=== PATIENT | female | born 1950 | race Caucasian/White ===

== ENCOUNTER 2019-11-18 11:08 | Outpatient (RCR) | payer MEDICARE, SELFPAY ==
--- NOTE | 2019-11-26 08:10 | PTOPEVAL ---
Thank you for referring this patient to [facility]. Please review, sign, date and return this plan of care LIZETH. I agree with and certify that the following plan of care is medically necessary. Referring Physician Date Admitting Provider: Attending Provider: ELAYNE FLORES Referring Provider: *PT Outpatient Evaluation Start: 11/25/19 22:33 Freq: Status: Active Protocol: Document 11/18/19 11:00 [place] (Rec: 11/25/19 22:47 [facility] [id number]) Therapy Assessment Status Assessment Status Assessment Status Evaluation Outpatient Past Medical History Past Medical History Reason Unable to Obtain Refer to [facility] form for pt. Hx. Evaluation Information Problem Diagnosis s/p L TKA Subjective Information patient reports she recently Query Text:As Reported By Patient/ had a replacement of the L Family knee. she presents with having also recently gone through replacement and therapy following R knee replacement. she reports she is feeling alright this date, but was feeling sick the past week or so. she reports she is still struggling with walking, standing, rom, and strength of the L knee this date. Prior Level of Function Comments Additional Prior Level of Function patient reports prior to Comments surgery of the L knee, she had surgery of the R knee. she reports she has been using an AD for ambulation since her last surgery, but reports prior to this, she was ambulating without any AD. she reports she would like to improve her ambulation distance, LE mobility, and return to normal ambulation and stair ambulation mechanics . Pain Assessment Timing of Pain Assessment Timing of Pain Assessment Assessment Pain Scale Pain Scale Used Numeric (1 - 10) Self Report Pain Assessment Left Knee(s) Reported Pain Level 2 Pain Description Aching,Soreness,Tightness Current Pain Intensity 2 Lowest Pain Intensity 1 Greatest Pain Intensity 5 Pain Level Goal 0 Pain Aggravating Factors Exercise/Activity,Walking, Weight Bearing/Standing
--- NOTE | 2019-11-27 15:22 | PCPTNOTE ---
patient cancelled appt today due to being sick. ELÍAS
== END 2019-12-30 14:17 | disposition home or self-care (01) ==
LOC: CHSPT 11:08
DX: Z47.1 Aftercare following joint replacement surgery (principal); Z96.652 Presence of left artificial knee joint
CPT/HCPCS: 97016; 97110; 97161